=== PATIENT | male | born 1935 | race Caucasian/White ===

== ENCOUNTER 2018-04-13 11:03 | Inpatient (IN) ==
[2018-04-13] MEDS ORDERED: SODIUM CHLORIDE 0.9% 1,000 ML IV STA (11:48)
[2018-04-13 12:11] LABS: Basophils # 0.1 10*3/uL (0.0-0.2); Basophils % 0.4 % (0.0-0.8); Eosinophils # 0.1 10*3/uL (0.0-0.87); Eosinophils % 0.7 % (0.00-10.9); Hematocrit 49.5 VOL% (42.0-52.0); Hemoglobin 16.4 GM/DL (14.0-18.0); Immature Granulocytes % 0.5 %; Immature Granulocytes Absolute 0.06 #; Lymphocytes % 7.6 % (21.2-54.2); Mean Corpuscular HGB Conc 33.1 GM/DL (32-36); Mean Corpuscular Hemoglobin 31 PG (27-34); Mean Corpuscular Volume 93.4 FL (87-102); Mean Platelet Volume 11.3 FL (9.6-12.0); Monocytes # 0.4 10*3/uL (0.11-0.8); Monocytes % 3.3 % (1.7-12.7); Neutrophils # 11.4 10*3/uL (1.4-7.4); Neutrophils % 87.5 % (38.7-73.9); Red Cell Distribution Width 13.7 % (9.3-17.3); White Blood Count 13.1 T/CUMM (4-12)
[2018-04-13 12:14] LABS: Platelet Count 89 T/CUMM (130-400)
[2018-04-13] MEDS ORDERED: ONDANSETRON 4 MG/2 ML VIAL ONE (12:21)
[2018-04-13 12:29] LABS: Alanine Aminotransferase 40 U/L (16-61); Albumin 3.6 G/DL (3.4-5.0); Alkaline Phosphatase 95 U/L (45-117); Aspartate Amino Transferase 33 U/L (0-37); Blood Urea Nitrogen 36 MG/DL (7-18); Calcium 9.5 MG/DL (8.5-10.1); Glucose 233 MG/DL (74-106); Hypochromasia 1+; Ovalocytes Slight; Platelet Estimate Decreased; Potassium 5.2 MMOL/L (3.5-5.1); Sodium 136 MMOL/L (136-145); Total Protein 7.6 G/DL (6.4-8.3)
[2018-04-13 12:36] LABS: Apearance,Urine CLEAR (Clear); Bacteria,Urine Occasional /HPF (Few); Bilirubin,Urine Negative (Negative); Blood, Urine Small mg/dL (Negative); Glucose,Urine (UA) 50 mg/dL (Negative); Ketones,Urine Negative (Negative); Lactic Acid 3.3 MMOL/L (0.4-2.0); Mucus,Urine Occasional /LPF (Occasional); Nitrite,Urine Negative (Negative); Protein,Urine 100 MG/DL; RBC,Urine 2 /HPF (0-4); Urine Color Yellow (Yellow); Urine Specific Gravity 1.011 (1.001-1.035); Urine Urobilinogen < 2.0 EU/DL (0.2-1.0)
[2018-04-13] MEDS ORDERED: SODIUM CHLORIDE 0.9% 3,900 ML IV ONE (12:58)
[2018-04-13] MEDS ORDERED: LEVOFLOXACIN INJ 500 MG in PREMIX 1 EACH IV STA (13:04)
[2018-04-13] MEDS ORDERED: ONDANSETRON 4 MG/2 ML VIAL IV PRN (13:11)
[2018-04-13] MEDS ORDERED: ACETAMINOPHEN 325 MG TABLET PO PRN (13:11)
[2018-04-13] MEDS: SODIUM CHLORIDE 0.9% 1,000 ML IV SCH ×2 (14:55→23:50)
[2018-04-13 14:58] LABS: ABG Base Excess -0.9 MMOL/L (-2.5-2.5); ABG HCO3 23.6 MMOL/L (20-26); ABG Oxygen Saturation 93.9 % (95-100); ABG PH 7.379 (7.35-7.45); ABG PO2 70.4 MM HG (80-95); ABG TCO2 20.6 MMOL/L (23-27)
[2018-04-13 16:31] LABS: Lactic Acid 3.2 MMOL/L (0.4-2.0)
[2018-04-13] MEDS: CEFTAROLINE 400 MG in SODIUM CHLORIDE 0.9% 100 ML IV SCH (17:20)
[2018-04-13] MEDS ORDERED: FLUTICASONE 50 MCG NASAL SPRAY 16 GM BOTTLE BOTH NARES PRN (18:41)
[2018-04-13] MEDS ORDERED: DEXTROSE 50% 25 GM/50 ML VIAL IV PRN (18:49)
[2018-04-13] MEDS ORDERED: GLUCAGON 1 MG VIAL IM PRN (18:49)
[2018-04-13] MEDS: traMADol 50 MG TABLET PO SCH (20:28)
[2018-04-13] MEDS: CALCIUM (CARBONATE) 600 MG TABLET PO SCH (20:28)
[2018-04-13] MEDS: DOCUSATE SODIUM 100 MG CAPSULE PO SCH (20:28)
[2018-04-13] MEDS: CHOLECALCIFEROL 1,000 UNIT TABLET PO SCH (20:29)
[2018-04-13] MEDS: GABAPENTIN 400 MG CAPSULE PO SCH (20:29)
[2018-04-13] MEDS: INSULIN LISPRO 100 UNIT/ML SUBCUT SCH (20:29)
[2018-04-13] MEDS: CLOTRIMAZOLE/BETAMETHASONE CREAM 15 GM TUBE TOP SCH (20:29)
[2018-04-13] MEDS: SIMVASTATIN 20 MG TABLET PO SCH (20:29)
[2018-04-13] MEDS: ALLOPURINOL 100 MG TABLET PO SCH (20:30)
[2018-04-14 05:16] LABS: Basophils # 0.1 10*3/uL (0.0-0.2); Basophils % 0.2 % (0.0-0.8); Hematocrit 46.8 VOL% (42.0-52.0); Hemoglobin 15.2 GM/DL (14.0-18.0); Immature Granulocytes % 5.4 %; Immature Granulocytes Absolute 1.35 #; Lymphocytes # 0.8 10*3/uL (1.4-4.0); Mean Corpuscular HGB Conc 32.5 GM/DL (32-36); Mean Corpuscular Hemoglobin 31 PG (27-34); Mean Corpuscular Volume 94.5 FL (87-102); Mean Platelet Volume 11.9 FL (9.6-12.0); Monocytes # 1.4 10*3/uL (0.11-0.8); Monocytes % 5.7 % (1.7-12.7); Neutrophils # 21.5 10*3/uL (1.4-7.4); Neutrophils % 85.7 % (38.7-73.9); Platelet Count 87 T/CUMM (130-400); Red Blood Count 4.95 MC/CUMM (3.8-5.5); Red Cell Distribution Width 14.1 % (9.3-17.3); White Blood Count 25.1 T/CUMM (4-12)
[2018-04-14] MEDS: CEFTAROLINE 400 MG in SODIUM CHLORIDE 0.9% 100 ML IV SCH (05:27)
[2018-04-14] MEDS: SODIUM CHLORIDE 0.9% 1,000 ML IV SCH ×4 (05:30→20:17)
[2018-04-14 05:42] LABS: Band Neutrophils 8 % (0-10); Lymphocytes 4 % (20-55); Metamyelocytes 2 %; Segmented Neutrophils 79 % (50-85); Total Cells Counted 100
[2018-04-14 05:43] LABS: Microcytosis Slight; Platelet Estimate Decreased
[2018-04-14 05:49] LABS: Lactic Acid 3.5 MMOL/L (0.4-2.0)
[2018-04-14] MEDS: glyBURIDE 5 MG TABLET PO SCH ×2 (07:48→17:36)
[2018-04-14] MEDS: PIOGLITAZONE 15 MG TABLET PO SCH (07:48)
[2018-04-14] MEDS: INSULIN LISPRO 100 UNIT/ML SUBCUT SCH ×4 (07:48→21:39)
[2018-04-14] MEDS: traMADol 50 MG TABLET PO SCH ×3 (07:48→21:38)
[2018-04-14] MEDS: GABAPENTIN 400 MG CAPSULE PO SCH ×3 (07:49→21:38)
[2018-04-14] MEDS: CLOTRIMAZOLE/BETAMETHASONE CREAM 15 GM TUBE TOP SCH ×2 (08:42→21:43)
[2018-04-14] MEDS: FUROSEMIDE 20 MG TABLET PO SCH (08:42)
[2018-04-14] MEDS: LORATADINE 10 MG TABLET PO SCH (08:42)
[2018-04-14] MEDS: MULTIVITAMIN (CENTRUM) TABLET PO SCH (08:42)
[2018-04-14] MEDS: ASPIRIN EC 81 MG TABLET PO SCH (08:42)
[2018-04-14] MEDS: PANTOPRAZOLE 40 MG TABLET PO SCH (08:42)
[2018-04-14] MEDS: DOCUSATE SODIUM 100 MG CAPSULE PO SCH ×2 (08:42→21:38)
[2018-04-14 08:54] LABS: Albumin 2.9 G/DL (3.4-5.0); Bilirubin,Total 1.1 MG/DL (0.2-1.0); Calcium 8.1 MG/DL (8.5-10.1); Total Protein 6.4 G/DL (6.4-8.3)
[2018-04-14 08:55] LABS: Osmolality,Calculated 279.5 MOS/KG (273-304); Risk Ratio 1.53; Thyroid Stimulating Hormone 1.45 uIU/ml (0.358-3.74); Uric Acid 6.3 MG/DL (3.5-7.2); VLDL CHOLESTEROL 20.4 MG/DL
[2018-04-14 08:56] LABS: Potassium 6.5 MMOL/L (3.5-5.1)
[2018-04-14] MEDS ORDERED: SODIUM POLYSTYRENE SULFATE 15 GM/60 ML BOTTLE PO SCH (09:30)
[2018-04-14] MEDS: cefTRIAXone 2,000 MG in SYRINGE 1 EACH IV SCH (16:15)
[2018-04-14 17:03] LABS: Calcium 8.2 MG/DL (8.5-10.1); Potassium 4.7 MMOL/L (3.5-5.1)
[2018-04-14] MEDS: TAMSULOSIN 0.4 MG CAPSULE PO SCH (17:36)
[2018-04-14] MEDS ORDERED: LEVOFLOXACIN INJ 750 MG in PREMIX 1 EACH IV SCH (21:00)
[2018-04-14] MEDS: CHOLECALCIFEROL 1,000 UNIT TABLET PO SCH (21:37)
[2018-04-14] MEDS: ALLOPURINOL 100 MG TABLET PO SCH (21:38)
[2018-04-14] MEDS: SIMVASTATIN 20 MG TABLET PO SCH (21:38)
[2018-04-14] MEDS: CALCIUM (CARBONATE) 600 MG TABLET PO SCH (21:38)
[2018-04-14] MEDS: NORTRIPTYLINE HCL 100 MG PO SCH (21:43)
[2018-04-15 06:15] LABS: Basophils # 0.1 10*3/uL (0.0-0.2); Basophils % 0.4 % (0.0-0.8); Eosinophils # 0.3 10*3/uL (0.0-0.87); Eosinophils % 1.7 % (0.00-10.9); Hematocrit 44.8 VOL% (42.0-52.0); Hemoglobin 14.6 GM/DL (14.0-18.0); Immature Granulocytes Absolute 0.45 #; Lymphocytes % 6.7 % (21.2-54.2); Mean Corpuscular HGB Conc 32.6 GM/DL (32-36); Mean Corpuscular Hemoglobin 31 PG (27-34); Mean Corpuscular Volume 95.3 FL (87-102); Mean Platelet Volume 12.4 FL (9.6-12.0); Monocytes # 0.9 10*3/uL (0.11-0.8); Monocytes % 6.2 % (1.7-12.7); Neutrophils # 12.3 10*3/uL (1.4-7.4); Platelet Count 81 T/CUMM (130-400); Red Cell Distribution Width 14.3 % (9.3-17.3)
[2018-04-15 06:33] LABS: Calcium 8.1 MG/DL (8.5-10.1); Osmolality,Calculated 284.8 MOS/KG (273-304); Potassium 4.5 MMOL/L (3.5-5.1)
[2018-04-15 06:44] LABS: Hypochromasia 1+; Ovalocytes Slight; Platelet Estimate Decreased
[2018-04-15 06:45] LABS: Microcytosis Slight
[2018-04-15] MEDS: INSULIN LISPRO 100 UNIT/ML SUBCUT SCH ×4 (09:00→20:35)
[2018-04-15] MEDS: PIOGLITAZONE 15 MG TABLET PO SCH (09:03)
[2018-04-15] MEDS: glyBURIDE 5 MG TABLET PO SCH ×2 (09:03→17:29)
[2018-04-15] MEDS: GABAPENTIN 400 MG CAPSULE PO SCH ×3 (09:03→20:34)
[2018-04-15] MEDS: traMADol 50 MG TABLET PO SCH ×3 (09:03→20:34)
[2018-04-15] MEDS: PANTOPRAZOLE 40 MG TABLET PO SCH (09:04)
[2018-04-15] MEDS: ASPIRIN EC 81 MG TABLET PO SCH (09:04)
[2018-04-15] MEDS: LORATADINE 10 MG TABLET PO SCH (09:04)
[2018-04-15] MEDS: FUROSEMIDE 20 MG TABLET PO SCH (09:04)
[2018-04-15] MEDS: DOCUSATE SODIUM 100 MG CAPSULE PO SCH ×2 (09:04→20:35)
[2018-04-15] MEDS: MULTIVITAMIN (CENTRUM) TABLET PO SCH (09:04)
[2018-04-15] MEDS: SODIUM CHLORIDE 0.9% 1,000 ML IV SCH (09:58)
[2018-04-15] MEDS: cefTRIAXone 2,000 MG in SYRINGE 1 EACH IV SCH (15:56)
[2018-04-15] MEDS: TAMSULOSIN 0.4 MG CAPSULE PO SCH (17:29)
[2018-04-15] MEDS: CLOTRIMAZOLE/BETAMETHASONE CREAM 15 GM TUBE TOP SCH ×2 (17:44→22:06)
[2018-04-15] MEDS: CABERGOLINE 0.5 MG PO SCH (20:33)
[2018-04-15] MEDS: NORTRIPTYLINE HCL 100 MG PO SCH (20:33)
[2018-04-15] MEDS: CHOLECALCIFEROL 1,000 UNIT TABLET PO SCH (20:33)
[2018-04-15] MEDS: SIMVASTATIN 20 MG TABLET PO SCH (20:34)
[2018-04-15] MEDS: CALCIUM (CARBONATE) 600 MG TABLET PO SCH (20:35)
[2018-04-15] MEDS: ALLOPURINOL 100 MG TABLET PO SCH (20:35)
[2018-04-16] MEDS: SODIUM CHLORIDE 0.9% 1,000 ML IV SCH ×2 (00:51→01:08)
[2018-04-16 06:13] LABS: Basophils # 0.1 10*3/uL (0.0-0.2); Basophils % 0.6 % (0.0-0.8); Eosinophils # 0.3 10*3/uL (0.0-0.87); Eosinophils % 3.8 % (0.00-10.9); Hematocrit 42.3 VOL% (42.0-52.0); Immature Granulocytes % 0.9 %; Immature Granulocytes Absolute 0.08 #; Lymphocytes # 0.9 10*3/uL (1.4-4.0); Lymphocytes % 10.7 % (21.2-54.2); Mean Corpuscular HGB Conc 33.1 GM/DL (32-36); Mean Corpuscular Hemoglobin 31 PG (27-34); Mean Corpuscular Volume 94.4 FL (87-102); Mean Platelet Volume 11.9 FL (9.6-12.0); Monocytes # 0.7 10*3/uL (0.11-0.8); Monocytes % 7.7 % (1.7-12.7); Neutrophils # 6.4 10*3/uL (1.4-7.4); Neutrophils % 76.3 % (38.7-73.9); Platelet Count 87 T/CUMM (130-400); Red Blood Count 4.48 MC/CUMM (3.8-5.5); Red Cell Distribution Width 14.4 % (9.3-17.3); White Blood Count 8.4 T/CUMM (4-12)
[2018-04-16 06:35] LABS: Hypochromasia Slight; Microcytosis 1+; Platelet Estimate Decreased
[2018-04-16 06:37] LABS: Calcium 8.2 MG/DL (8.5-10.1); Osmolality,Calculated 288.5 MOS/KG (273-304); Potassium 4.7 MMOL/L (3.5-5.1)
[2018-04-16] MEDS: INSULIN LISPRO 100 UNIT/ML SUBCUT SCH ×4 (08:00→20:35)
[2018-04-16] MEDS: PIOGLITAZONE 15 MG TABLET PO SCH (09:17)
[2018-04-16] MEDS: glyBURIDE 5 MG TABLET PO SCH ×2 (09:17→17:04)
[2018-04-16] MEDS: traMADol 50 MG TABLET PO SCH ×3 (09:18→20:36)
[2018-04-16] MEDS: GABAPENTIN 400 MG CAPSULE PO SCH ×3 (09:18→20:37)
[2018-04-16] MEDS: FUROSEMIDE 20 MG TABLET PO SCH (09:18)
[2018-04-16] MEDS: MULTIVITAMIN (CENTRUM) TABLET PO SCH (09:18)
[2018-04-16] MEDS: ASPIRIN EC 81 MG TABLET PO SCH (09:18)
[2018-04-16] MEDS: LORATADINE 10 MG TABLET PO SCH (09:18)
[2018-04-16] MEDS: DOCUSATE SODIUM 100 MG CAPSULE PO SCH ×2 (09:18→20:36)
[2018-04-16] MEDS: PANTOPRAZOLE 40 MG TABLET PO SCH (09:22)
[2018-04-16] MEDS: CLOTRIMAZOLE/BETAMETHASONE CREAM 15 GM TUBE TOP SCH ×2 (11:11→20:35)
[2018-04-16] MEDS: MAGNESIUM SULF IV SCH (15:09)
[2018-04-16] MEDS: SODIUM CHLORIDE 0.9% IV SCH (15:09)
[2018-04-16] MEDS: cefTRIAXone 2,000 MG in SYRINGE 1 EACH IV SCH (16:20)
[2018-04-16] MEDS: TAMSULOSIN 0.4 MG CAPSULE PO SCH (17:04)
[2018-04-16] MEDS: SIMVASTATIN 20 MG TABLET PO SCH (20:36)
[2018-04-16] MEDS: CHOLECALCIFEROL 1,000 UNIT TABLET PO SCH (20:36)
[2018-04-16] MEDS: CALCIUM (CARBONATE) 600 MG TABLET PO SCH (20:36)
[2018-04-16] MEDS: ALLOPURINOL 100 MG TABLET PO SCH (20:36)
[2018-04-16] MEDS: NORTRIPTYLINE HCL 100 MG PO SCH (20:37)
[2018-04-17] MEDS: SODIUM CHLORIDE 0.9% IV SCH ×2 (04:43→20:16)
[2018-04-17] MEDS: MAGNESIUM SULF IV SCH ×2 (04:43→20:16)
[2018-04-17 05:31] LABS: Basophils # 0.1 10*3/uL (0.0-0.2); Basophils % 1.1 % (0.0-0.8); Eosinophils # 0.3 10*3/uL (0.0-0.87); Eosinophils % 4.5 % (0.00-10.9); Hematocrit 44.7 VOL% (42.0-52.0); Hemoglobin 14.8 GM/DL (14.0-18.0); Immature Granulocytes % 1.1 %; Immature Granulocytes Absolute 0.07 #; Lymphocytes # 1.1 10*3/uL (1.4-4.0); Lymphocytes % 17.6 % (21.2-54.2); Mean Corpuscular HGB Conc 33.1 GM/DL (32-36); Mean Corpuscular Hemoglobin 31 PG (27-34); Mean Corpuscular Volume 94.3 FL (87-102); Mean Platelet Volume 11.5 FL (9.6-12.0); Monocytes # 0.5 10*3/uL (0.11-0.8); Monocytes % 8.6 % (1.7-12.7); Neutrophils # 4.1 10*3/uL (1.4-7.4); Neutrophils % 67.1 % (38.7-73.9); Platelet Count 105 T/CUMM (130-400); Red Blood Count 4.74 MC/CUMM (3.8-5.5); Red Cell Distribution Width 14.2 % (9.3-17.3); White Blood Count 6.2 T/CUMM (4-12)
[2018-04-17 05:57] LABS: Calcium 8.5 MG/DL (8.5-10.1); Osmolality,Calculated 283.7 MOS/KG (273-304); Potassium 4.8 MMOL/L (3.5-5.1)
[2018-04-17] MEDS: PIOGLITAZONE 15 MG TABLET PO SCH (07:55)
[2018-04-17] MEDS: glyBURIDE 5 MG TABLET PO SCH ×2 (07:55→17:21)
[2018-04-17] MEDS: INSULIN LISPRO 100 UNIT/ML SUBCUT SCH ×4 (07:55→20:18)
[2018-04-17] MEDS: GABAPENTIN 400 MG CAPSULE PO SCH ×3 (09:20→20:17)
[2018-04-17] MEDS: traMADol 50 MG TABLET PO SCH ×3 (09:20→20:17)
[2018-04-17] MEDS: LORATADINE 10 MG TABLET PO SCH (09:21)
[2018-04-17] MEDS: PANTOPRAZOLE 40 MG TABLET PO SCH (09:21)
[2018-04-17] MEDS: MULTIVITAMIN (CENTRUM) TABLET PO SCH (09:21)
[2018-04-17] MEDS: FUROSEMIDE 20 MG TABLET PO SCH (09:21)
[2018-04-17] MEDS: ASPIRIN EC 81 MG TABLET PO SCH (09:21)
[2018-04-17] MEDS: DOCUSATE SODIUM 100 MG CAPSULE PO SCH ×2 (09:21→20:18)
[2018-04-17] MEDS: CLOTRIMAZOLE/BETAMETHASONE CREAM 15 GM TUBE TOP SCH ×2 (09:29→20:19)
[2018-04-17] MEDS: cefTRIAXone 2,000 MG in SYRINGE 1 EACH IV SCH (15:41)
[2018-04-17] MEDS: TAMSULOSIN 0.4 MG CAPSULE PO SCH (17:21)
[2018-04-17] MEDS: NORTRIPTYLINE HCL 100 MG PO SCH (20:16)
[2018-04-17] MEDS: ALLOPURINOL 100 MG TABLET PO SCH (20:17)
[2018-04-17] MEDS: CALCIUM (CARBONATE) 600 MG TABLET PO SCH (20:18)
[2018-04-17] MEDS: SIMVASTATIN 20 MG TABLET PO SCH (20:18)
[2018-04-17] MEDS: CHOLECALCIFEROL 1,000 UNIT TABLET PO SCH (20:18)
[2018-04-18 03:39] LABS: Basophils # 0.1 10*3/uL (0.0-0.2); Basophils % 0.8 % (0.0-0.8); Eosinophils # 0.2 10*3/uL (0.0-0.87); Eosinophils % 3.6 % (0.00-10.9); Hematocrit 44.1 VOL% (42.0-52.0); Hemoglobin 14.6 GM/DL (14.0-18.0); Immature Granulocytes % 2.6 %; Immature Granulocytes Absolute 0.17 #; Lymphocytes # 1.2 10*3/uL (1.4-4.0); Lymphocytes % 18.2 % (21.2-54.2); Mean Corpuscular HGB Conc 33.1 GM/DL (32-36); Mean Corpuscular Hemoglobin 31 PG (27-34); Mean Platelet Volume 11.3 FL (9.6-12.0); Monocytes # 0.6 10*3/uL (0.11-0.8); Monocytes % 9.2 % (1.7-12.7); NRBC # 0.02 10*3/uL; Neutrophils # 4.2 10*3/uL (1.4-7.4); Neutrophils % 65.6 % (38.7-73.9); Platelet Count 105 T/CUMM (130-400); Red Blood Count 4.74 MC/CUMM (3.8-5.5); Red Cell Distribution Width 13.9 % (9.3-17.3); White Blood Count 6.4 T/CUMM (4-12)
[2018-04-18 04:13] LABS: Calcium 8.2 MG/DL (8.5-10.1); Osmolality,Calculated 288.5 MOS/KG (273-304); Potassium 4.6 MMOL/L (3.5-5.1)
[2018-04-18] MEDS: INSULIN LISPRO 100 UNIT/ML SUBCUT SCH ×4 (07:10→21:18)
[2018-04-18] MEDS: glyBURIDE 5 MG TABLET PO SCH ×2 (08:41→17:29)
[2018-04-18] MEDS: MULTIVITAMIN (CENTRUM) TABLET PO SCH (08:42)
[2018-04-18] MEDS: PIOGLITAZONE 15 MG TABLET PO SCH (08:42)
[2018-04-18] MEDS: GABAPENTIN 400 MG CAPSULE PO SCH ×3 (08:42→21:17)
[2018-04-18] MEDS: traMADol 50 MG TABLET PO SCH ×3 (08:43→21:16)
[2018-04-18] MEDS: PANTOPRAZOLE 40 MG TABLET PO SCH (08:44)
[2018-04-18] MEDS: FUROSEMIDE 20 MG TABLET PO SCH (08:44)
[2018-04-18] MEDS: LORATADINE 10 MG TABLET PO SCH (08:44)
[2018-04-18] MEDS: ASPIRIN EC 81 MG TABLET PO SCH (08:45)
[2018-04-18] MEDS: CLOTRIMAZOLE/BETAMETHASONE CREAM 15 GM TUBE TOP SCH ×2 (08:46→21:24)
[2018-04-18] MEDS: DOCUSATE SODIUM 100 MG CAPSULE PO SCH ×2 (08:50→21:25)
[2018-04-18] MEDS: SODIUM CHLORIDE 0.9% IV SCH ×2 (09:27→23:11)
[2018-04-18] MEDS: MAGNESIUM SULF IV SCH ×2 (09:27→23:11)
[2018-04-18] MEDS: CLINDAMYCIN INJ 600 MG in PREMIX 1 EACH IV SCH ×2 (12:08→21:18)
[2018-04-18] MEDS: cefTRIAXone 2,000 MG in SYRINGE 1 EACH IV SCH (15:45)
[2018-04-18 16:26] LABS: 25-Hydroxy D Total 34 ng/mL; 25-Hydroxy D2 < 4.0 ng/mL; 25-Hydroxy D3 34 ng/mL
[2018-04-18] MEDS: TAMSULOSIN 0.4 MG CAPSULE PO SCH (17:29)
[2018-04-18] MEDS ORDERED: LACTULOSE 20 GM/30 ML UDCUP PO PRN (19:32)
[2018-04-18] MEDS ORDERED: LACTULOSE 20 GM/30 ML UDCUP PO ONE (21:00)
[2018-04-18] MEDS: CALCIUM (CARBONATE) 600 MG TABLET PO SCH (21:18)
[2018-04-18] MEDS: CHOLECALCIFEROL 1,000 UNIT TABLET PO SCH (21:18)
[2018-04-18] MEDS: SIMVASTATIN 20 MG TABLET PO SCH (21:18)
[2018-04-18] MEDS: ALLOPURINOL 100 MG TABLET PO SCH (21:18)
[2018-04-18] MEDS: NORTRIPTYLINE HCL 100 MG PO SCH (21:20)
[2018-04-18] MEDS: CABERGOLINE 0.5 MG PO SCH (21:20)
[2018-04-19] MEDS: CLINDAMYCIN INJ 600 MG in PREMIX 1 EACH IV SCH (04:50)
[2018-04-19 06:12] LABS: Basophils # 0.1 10*3/uL (0.0-0.2); Basophils % 1.1 % (0.0-0.8); Eosinophils # 0.3 10*3/uL (0.0-0.87); Eosinophils % 5.1 % (0.00-10.9); Hematocrit 45.9 VOL% (42.0-52.0); Hemoglobin 15.5 GM/DL (14.0-18.0); Immature Granulocytes % 5.1 %; Immature Granulocytes Absolute 0.32 #; Lymphocytes # 1.7 10*3/uL (1.4-4.0); Lymphocytes % 27.4 % (21.2-54.2); Mean Corpuscular HGB Conc 33.8 GM/DL (32-36); Mean Corpuscular Hemoglobin 31 PG (27-34); Mean Corpuscular Volume 92.7 FL (87-102); Mean Platelet Volume 11.3 FL (9.6-12.0); Monocytes # 0.6 10*3/uL (0.11-0.8); Monocytes % 10.3 % (1.7-12.7); Neutrophils # 3.2 10*3/uL (1.4-7.4); Platelet Count 128 T/CUMM (130-400); Red Blood Count 4.95 MC/CUMM (3.8-5.5); Red Cell Distribution Width 14.2 % (9.3-17.3); White Blood Count 6.2 T/CUMM (4-12)
[2018-04-19 06:26] LABS: Calcium 8.3 MG/DL (8.5-10.1); Osmolality,Calculated 285.5 MOS/KG (273-304); Potassium 4.4 MMOL/L (3.5-5.1)
[2018-04-19 06:35] LABS: Anisocytosis 1+; Band Neutrophils 10 % (0-10); Eosinophils 5 % (0-10); Lymphocytes 23 % (20-55); Platelet Estimate Adequate; Segmented Neutrophils 53 % (50-85); Total Cells Counted 100
[2018-04-19 07:21] LABS: Sedimentation Rate-Westergren 43 MM/HR (0-20)
[2018-04-19] MEDS: INSULIN LISPRO 100 UNIT/ML SUBCUT SCH ×2 (09:04→11:30)
[2018-04-19] MEDS: PIOGLITAZONE 15 MG TABLET PO SCH (09:07)
[2018-04-19] MEDS: MULTIVITAMIN (CENTRUM) TABLET PO SCH (09:07)
[2018-04-19] MEDS: LORATADINE 10 MG TABLET PO SCH (09:07)
[2018-04-19] MEDS: PANTOPRAZOLE 40 MG TABLET PO SCH (09:07)
[2018-04-19] MEDS: ASPIRIN EC 81 MG TABLET PO SCH (09:07)
[2018-04-19] MEDS: traMADol 50 MG TABLET PO SCH ×2 (09:08→15:04)
[2018-04-19] MEDS: glyBURIDE 5 MG TABLET PO SCH (09:09)
[2018-04-19] MEDS: FUROSEMIDE 20 MG TABLET PO SCH (09:09)
[2018-04-19] MEDS: GABAPENTIN 400 MG CAPSULE PO SCH ×2 (09:09→15:04)
[2018-04-19] MEDS: DOCUSATE SODIUM 100 MG CAPSULE PO SCH (09:09)
[2018-04-19] MEDS: CLOTRIMAZOLE/BETAMETHASONE CREAM 15 GM TUBE TOP SCH (09:10)
[2018-04-19] MEDS ORDERED: CLINDAMYCIN 300 MG CAPSULE PO SCH (12:00)
[2018-04-19 12:06] VITALS: BP 151/91
[2018-04-19] MEDS: cefTRIAXone 2,000 MG in SYRINGE 1 EACH IV SCH (15:04)
[2018-04-19] MEDS: SODIUM CHLORIDE 0.9% IV SCH (15:05)
[2018-04-19] MEDS: MAGNESIUM SULF IV SCH (15:05)
[2018-04-22] MEDS ORDERED: NON-FORMULARY MEDICATION (Testosterone Enanthate [Testosterone Enanthate] 200 MG) IM SCH (09:00)
== END 2018-04-19 15:35 | disposition home or self-care (01) | DRG 872 ==
LOC: N.ED 11:03 → N.EDINP 13:09 → N.ICU 14:30 → N.3E 04-14 19:16
PROVIDERS: ADMIT Family Medicine; ATTEND Family Medicine

== ENCOUNTER 2021-12-21 17:29 | Inpatient (IN) ==
[2021-12-21] MEDS ORDERED: LEVOFLOXACIN INJ 500 MG/100 ML PREMIX IV STA (18:14)
[2021-12-21] MEDS ORDERED: ALBUTEROL/IPRATROPIUM 3 ML NEB RESP TX STA (18:14)
[2021-12-21] MEDS ORDERED: ACETAMINOPHEN 500 MG TABLET PO STA (18:14)
[2021-12-21 18:25] LABS: Basophils % 0.3 % (0.0-0.8); Eosinophils % 0.6 % (0.00-10.9); Hematocrit 45.4 VOL% (42.0-52.0); Hemoglobin 15.4 GM/DL (14.0-18.0); Immature Granulocytes % 0.9 %; Immature Granulocytes Absolute 0.03 #; Lymphocytes # 0.5 10*3/uL (1.4-4.0); Lymphocytes % 15.2 % (21.2-54.2); Mean Corpuscular HGB Conc 33.9 GM/DL (32-36); Mean Corpuscular Volume 92.3 FL (87-102); Monocytes % 10.1 % (1.7-12.7); Neutrophils % 72.9 % (38.7-73.9); Red Blood Count 4.92 MC/CUMM (3.8-5.5); Red Cell Distribution Width 13.7 % (9.3-17.3); White Blood Count 3.4 T/CUMM (4-12)
[2021-12-21 18:26] LABS: Platelet Count 83 T/CUMM (130-400)
[2021-12-21 18:33] LABS: Mucus,Urine Occasional /LPF (Occasional); RBC,Urine 99 /HPF (0-4); Squamous Epithelial Cell,Urine Occasional /HPF (0-10)
[2021-12-21 18:34] LABS: Bilirubin,Urine Negative (Negative); Blood, Urine Large mg/dL (Negative); Glucose,Urine (UA) Negative (Negative); Ketones,Urine Negative (Negative); Nitrite,Urine Negative (Negative); Protein,Urine >=300 mg/dL (Negative); Urine Appearance Clear (Clear); Urine Color Yellow (Yellow)
[2021-12-21 18:39] LABS: PT Patient Result 11.1 SECS (10.5-12.0)
[2021-12-21 18:42] LABS: Platelet Estimate Decreased
[2021-12-21 18:44] LABS: Albumin 2.9 G/DL (3.4-5.0); Bilirubin,Total 1.1 MG/DL (0.20-1.00); Calcium 7.5 MG/DL (8.5-10.1); Osmolality,Calculated 277.5 MOS/KG (273-304); Potassium 5.1 MMOL/L (3.5-5.1); Total Protein 6.4 G/DL (6.4-8.2)
[2021-12-21] MEDS ORDERED: IBUPROFEN 800 MG TABLET ONE (19:59)
[2021-12-21] MEDS ORDERED: IBUPROFEN 800 MG TABLET PO STA (20:04)
[2021-12-21] MEDS ORDERED: ACETAMINOPHEN 325 MG TABLET PO PRN (20:37)
[2021-12-21] MEDS ORDERED: MORPHINE 2 MG/1 ML SYRINGE IV PRN (20:37)
[2021-12-21] MEDS ORDERED: ONDANSETRON 4 MG/2 ML VIAL IV PRN (20:37)
[2021-12-21] MEDS ORDERED: IBUPROFEN 600 MG TABLET PO PRN (20:37)
[2021-12-21] MEDS ORDERED: FLUTICASONE 50 MCG NASAL SPRAY 16 GM BOTTLE BOTH NARES PRN (20:37)
[2021-12-21] MEDS: SODIUM CHLORIDE 0.9% 1,000 ML IV SCH (21:15)
[2021-12-21] MEDS: GABAPENTIN 400 MG CAPSULE PO SCH (21:21)
[2021-12-21] MEDS: PANTOPRAZOLE 40 MG TABLET PO SCH (21:22)
[2021-12-21] MEDS: ENOXAPARIN 30 MG/0.3 ML SYRINGE SUBCUT SCH (21:22)
[2021-12-21] MEDS: DOCUSATE SODIUM 100 MG CAPSULE PO SCH (21:22)
[2021-12-21] MEDS: DOXYCYCLINE HYCLATE INJ 100 MG in SODIUM CHLORIDE 0.9% 100 ML IV SCH (21:22)
[2021-12-21] MEDS: SIMVASTATIN 20 MG TABLET PO SCH (21:22)
[2021-12-21] MEDS: allopurinoL 100 MG TABLET PO SCH (21:23)
[2021-12-21] MEDS ORDERED: SODIUM CHLORIDE 0.9% 1,000 ML IV STA (22:29)
[2021-12-22] MEDS: INSULIN REGULAR 100 UNIT/ML SUBCUT SCH ×4 (00:47→19:33)
[2021-12-22 04:19] LABS: Basophils % 0.3 % (0.0-0.8); Hematocrit 42.8 VOL% (42.0-52.0); Hemoglobin 14.1 GM/DL (14.0-18.0); Immature Granulocytes % 2.4 %; Immature Granulocytes Absolute 0.18 #; Lymphocytes # 0.8 10*3/uL (1.4-4.0); Mean Corpuscular HGB Conc 32.9 GM/DL (32-36); Mean Corpuscular Volume 94.1 FL (87-102); Mean Platelet Volume 11.4 FL (9.6-12.0); Monocytes % 7.4 % (1.7-12.7); Neutrophils % 79.9 % (38.7-73.9); Red Blood Count 4.55 MC/CUMM (3.8-5.5)
[2021-12-22 04:21] LABS: Platelet Count 76 T/CUMM (130-400); White Blood Count 7.5 T/CUMM (4-12)
[2021-12-22 04:36] LABS: Amorphous Crystals,Urine Occasional /HPF (Few); Mucus,Urine Occasional /LPF (Occasional); RBC,Urine 100 /HPF (0-4)
[2021-12-22 04:37] LABS: Bilirubin,Urine Negative (Negative); Blood, Urine Large mg/dL (Negative); Glucose,Urine (UA) Negative (Negative); Ketones,Urine Negative (Negative); Nitrite,Urine Negative (Negative); Protein,Urine >=300 mg/dL (Negative); Urine Appearance Clear (Clear); Urine Color Yellow (Yellow); Urine Urobilinogen 0.2 eU/dL (<2.0)
[2021-12-22 04:40] LABS: Band Neutrophils 8 % (0-10); Eosinophils 1 % (0-10); Lymphocytes 8 % (20-55); Nucleated Red Blood Cells 1 (0-5); Platelet Estimate Decreased; Segmented Neutrophils 71 % (50-85); Total Cells Counted 100
[2021-12-22 04:50] LABS: Albumin 2.2 G/DL (3.4-5.0); Calcium 7.1 MG/DL (8.5-10.1); Potassium 4.4 MMOL/L (3.5-5.1); Risk Ratio 2.25; Total Protein 5.7 G/DL (6.4-8.2); VLDL Cholesterol 18.8 MG/DL
[2021-12-22] MEDS: FUROSEMIDE 20 MG TABLET PO SCH (08:30)
[2021-12-22] MEDS: DOCUSATE SODIUM 100 MG CAPSULE PO SCH ×2 (08:30→22:48)
[2021-12-22] MEDS: traMADol 50 MG TABLET PO SCH ×3 (08:30→22:48)
[2021-12-22] MEDS: TAMSULOSIN 0.4 MG CAPSULE PO SCH (08:30)
[2021-12-22] MEDS: ASPIRIN EC 81 MG TABLET PO SCH (08:30)
[2021-12-22] MEDS ORDERED: PANTOPRAZOLE 40 MG TABLET PO SCH (09:00)
[2021-12-22] MEDS: DOXYCYCLINE HYCLATE INJ 100 MG in SODIUM CHLORIDE 0.9% 100 ML IV SCH (09:00)
[2021-12-22] MEDS: PIOGLITAZONE 15 MG TABLET PO SCH (09:05)
[2021-12-22] MEDS: glyBURIDE 5 MG TABLET PO SCH ×2 (09:05→16:06)
[2021-12-22] MEDS: SODIUM CHLORIDE 0.9% 1,000 ML IV SCH (10:00)
[2021-12-22] MEDS: CLOTRIMAZOLE/BETAMETHASONE CREAM 15 GM TUBE TOP SCH ×2 (19:11→22:51)
[2021-12-22] MEDS ORDERED: TESTOSTERONE ENANTHATE IM SCH (20:37)
[2021-12-22] MEDS: NORTRIPTYLINE 25 MG CAPSULE PO SCH (22:46)
[2021-12-22] MEDS: CHOLECALCIFEROL 1,000 UNIT TABLET PO SCH (22:47)
[2021-12-22] MEDS: allopurinoL 100 MG TABLET PO SCH (22:47)
[2021-12-22] MEDS: GABAPENTIN 400 MG CAPSULE PO SCH (22:47)
[2021-12-22] MEDS: CALCIUM (CARBONATE) 500 MG TABLET PO SCH (22:47)
[2021-12-22] MEDS: PANTOPRAZOLE 40 MG TABLET PO SCH (22:48)
[2021-12-22] MEDS: SIMVASTATIN 20 MG TABLET PO SCH (22:48)
[2021-12-22] MEDS: ENOXAPARIN 30 MG/0.3 ML SYRINGE SUBCUT SCH (22:49)
[2021-12-23] MEDS: SODIUM CHLORIDE 0.9% 1,000 ML IV SCH (01:58)
[2021-12-23] MEDS: INSULIN REGULAR 100 UNIT/ML SUBCUT SCH ×5 (02:00→23:22)
[2021-12-23] MEDS: GLUCAGON 1 MG VIAL IM PRN ×2 (03:54→15:15)
[2021-12-23] MEDS: DOXYCYCLINE HYCLATE INJ 100 MG in SODIUM CHLORIDE 0.9% 100 ML IV SCH ×3 (03:55→21:16)
[2021-12-23] MEDS: DEXTROSE 10% 250 ML BAG IV PRN ×3 (04:14→22:19)
[2021-12-23 05:34] LABS: Basophils % 0.2 % (0.0-0.8); Eosinophils % 0.1 % (0.00-10.9); Hematocrit 38.8 VOL% (42.0-52.0); Hemoglobin 12.8 GM/DL (14.0-18.0); Immature Granulocytes % 16.8 %; Immature Granulocytes Absolute 1.64 #; Lymphocytes # 0.5 10*3/uL (1.4-4.0); Lymphocytes % 5.3 % (21.2-54.2); Mean Corpuscular Volume 93.7 FL (87-102); Mean Platelet Volume 11.8 FL (9.6-12.0); Monocytes % 3.8 % (1.7-12.7); Neutrophils % 73.8 % (38.7-73.9); Platelet Count 94 T/CUMM (130-400); Red Blood Count 4.14 MC/CUMM (3.8-5.5); Red Cell Distribution Width 14.2 % (9.3-17.3); White Blood Count 9.7 T/CUMM (4-12)
[2021-12-23 05:56] LABS: Band Neutrophils 8 % (0-10); Bilirubin,Total 0.9 MG/DL (0.20-1.00); Calcium 7.3 MG/DL (8.5-10.1); Eosinophils 1 % (0-10); Lymphocytes 3 % (20-55); Osmolality,Calculated 280.2 MOS/KG (273-304); Platelet Estimate Decreased; Potassium 4.1 MMOL/L (3.5-5.1); Segmented Neutrophils 83 % (50-85); Thyroid Stimulating Hormone 0.31 uIU/ml (0.358-3.74); Total Cells Counted 100; Total Protein 5.4 G/DL (6.4-8.2)
[2021-12-23] MEDS ORDERED: BENZONATATE 100 MG CAPSULE PO PRN (07:52)
[2021-12-23] MEDS ORDERED: LEVOFLOXACIN INJ 500 MG/100 ML PREMIX IV SCH (08:00)
[2021-12-23] MEDS: glyBURIDE 5 MG TABLET PO SCH (09:27)
[2021-12-23] MEDS: PIOGLITAZONE 15 MG TABLET PO SCH (09:28)
[2021-12-23] MEDS: TAMSULOSIN 0.4 MG CAPSULE PO SCH (09:28)
[2021-12-23] MEDS: ASPIRIN EC 81 MG TABLET PO SCH (09:28)
[2021-12-23] MEDS: LORATADINE 10 MG TABLET PO SCH (09:28)
[2021-12-23] MEDS: DOCUSATE SODIUM 100 MG CAPSULE PO SCH ×2 (09:30→21:11)
[2021-12-23] MEDS: FUROSEMIDE 20 MG TABLET PO SCH (09:30)
[2021-12-23] MEDS: MULTIVITAMIN (CENTRUM) TABLET PO SCH (09:30)
[2021-12-23] MEDS: traMADol 50 MG TABLET PO SCH ×3 (09:30→21:10)
[2021-12-23] MEDS: DEXTROSE 5% NACL 0.45% 1,000 ML IV SCH (15:58)
[2021-12-23] MEDS ORDERED: LEVOFLOXACIN INJ 250 MG/50 ML PREMIX IV SCH (18:00)
[2021-12-23] MEDS: CLOTRIMAZOLE/BETAMETHASONE CREAM 15 GM TUBE TOP SCH ×2 (19:05→21:15)
[2021-12-23] MEDS: SIMVASTATIN 20 MG TABLET PO SCH (21:10)
[2021-12-23] MEDS: PANTOPRAZOLE 40 MG TABLET PO SCH (21:10)
[2021-12-23] MEDS: GABAPENTIN 400 MG CAPSULE PO SCH (21:10)
[2021-12-23] MEDS: allopurinoL 100 MG TABLET PO SCH (21:10)
[2021-12-23] MEDS: CHOLECALCIFEROL 1,000 UNIT TABLET PO SCH (21:10)
[2021-12-23] MEDS: CALCIUM (CARBONATE) 500 MG TABLET PO SCH (21:11)
[2021-12-23] MEDS: ENOXAPARIN 30 MG/0.3 ML SYRINGE SUBCUT SCH (21:11)
[2021-12-23] MEDS: NORTRIPTYLINE 25 MG CAPSULE PO SCH (21:16)
[2021-12-24 05:22] LABS: Basophils % 0.3 % (0.0-0.8); Eosinophils % 0.4 % (0.00-10.9); Hematocrit 40.2 VOL% (42.0-52.0); Hemoglobin 13.4 GM/DL (14.0-18.0); Immature Granulocytes Absolute 0.74 #; Lymphocytes # 0.8 10*3/uL (1.4-4.0); Lymphocytes % 10.5 % (21.2-54.2); Mean Corpuscular HGB Conc 33.3 GM/DL (32-36); Mean Corpuscular Volume 92.4 FL (87-102); Mean Platelet Volume 11.6 FL (9.6-12.0); Monocytes % 5.9 % (1.7-12.7); Neutrophils % 72.9 % (38.7-73.9); Platelet Count 116 T/CUMM (130-400); Red Blood Count 4.35 MC/CUMM (3.8-5.5); White Blood Count 7.4 T/CUMM (4-12)
[2021-12-24 05:34] LABS: Calcium 7.8 MG/DL (8.5-10.1); Osmolality,Calculated 281.1 MOS/KG (273-304); Potassium 4.1 MMOL/L (3.5-5.1)
[2021-12-24] MEDS: DEXTROSE 5% NACL 0.45% 1,000 ML IV SCH ×2 (05:41→17:12)
[2021-12-24] MEDS: INSULIN REGULAR 100 UNIT/ML SUBCUT SCH ×3 (05:42→17:36)
[2021-12-24 05:48] LABS: Band Neutrophils 1 % (0-10); Lymphocytes 12 % (20-55); Microcytosis 1+; Segmented Neutrophils 83 % (50-85); Total Cells Counted 100
[2021-12-24 05:49] LABS: Platelet Estimate Decreased
[2021-12-24] MEDS: traMADol 50 MG TABLET PO SCH ×3 (09:02→20:35)
[2021-12-24] MEDS: ASPIRIN EC 81 MG TABLET PO SCH (09:02)
[2021-12-24] MEDS: DOXYCYCLINE HYCLATE 100 MG CAPSULE PO SCH ×2 (09:03→20:35)
[2021-12-24] MEDS: TAMSULOSIN 0.4 MG CAPSULE PO SCH ×2 (09:03→20:34)
[2021-12-24] MEDS: MULTIVITAMIN (CENTRUM) TABLET PO SCH (09:03)
[2021-12-24] MEDS: DOCUSATE SODIUM 100 MG CAPSULE PO SCH ×2 (09:03→20:34)
[2021-12-24] MEDS: FUROSEMIDE 20 MG TABLET PO SCH (09:04)
[2021-12-24] MEDS: LORATADINE 10 MG TABLET PO SCH (09:04)
[2021-12-24] MEDS: CLOTRIMAZOLE/BETAMETHASONE CREAM 15 GM TUBE TOP SCH (15:22)
[2021-12-24] MEDS: MAGNESIUM HYDROXIDE SUSP 30 ML UDCUP PO PRN ×2 (16:12→20:53)
[2021-12-24] MEDS: PANTOPRAZOLE 40 MG TABLET PO SCH (20:34)
[2021-12-24] MEDS: GABAPENTIN 400 MG CAPSULE PO SCH (20:34)
[2021-12-24] MEDS: NORTRIPTYLINE 25 MG CAPSULE PO SCH (20:34)
[2021-12-24] MEDS: CHOLECALCIFEROL 1,000 UNIT TABLET PO SCH (20:34)
[2021-12-24] MEDS: allopurinoL 100 MG TABLET PO SCH (20:34)
[2021-12-24] MEDS: CALCIUM (CARBONATE) 500 MG TABLET PO SCH (20:34)
[2021-12-24] MEDS: ENOXAPARIN 30 MG/0.3 ML SYRINGE SUBCUT SCH (20:35)
[2021-12-24] MEDS: SIMVASTATIN 20 MG TABLET PO SCH (20:35)
[2021-12-25] MEDS: INSULIN REGULAR 100 UNIT/ML SUBCUT SCH ×4 (00:12→17:39)
[2021-12-25] MEDS: CLOTRIMAZOLE/BETAMETHASONE CREAM 15 GM TUBE TOP SCH ×3 (00:12→22:21)
[2021-12-25 05:51] LABS: Albumin 2.1 G/DL (3.4-5.0); Bilirubin,Total 3.2 MG/DL (0.20-1.00); Calcium 8.2 MG/DL (8.5-10.1); Osmolality,Calculated 279.1 MOS/KG (273-304); Potassium 4.2 MMOL/L (3.5-5.1); Total Protein 6.3 G/DL (6.4-8.2)
[2021-12-25] MEDS: SODIUM CHLORIDE 0.9% 1,000 ML IV SCH (07:28)
[2021-12-25] MEDS: TAMSULOSIN 0.4 MG CAPSULE PO SCH ×2 (08:39→20:03)
[2021-12-25] MEDS: FUROSEMIDE 20 MG TABLET PO SCH (08:40)
[2021-12-25] MEDS: traMADol 50 MG TABLET PO SCH ×3 (08:40→20:04)
[2021-12-25] MEDS: LORATADINE 10 MG TABLET PO SCH (08:40)
[2021-12-25] MEDS: DOCUSATE SODIUM 100 MG CAPSULE PO SCH ×2 (08:40→20:05)
[2021-12-25] MEDS: MULTIVITAMIN (CENTRUM) TABLET PO SCH (08:40)
[2021-12-25] MEDS: ASPIRIN EC 81 MG TABLET PO SCH (08:40)
[2021-12-25] MEDS: DEXTROSE 5% NACL 0.45% 1,000 ML IV SCH ×2 (08:46→22:18)
[2021-12-25] MEDS ORDERED: LEVOFLOXACIN 500 MG TABLET PO SCH (09:00)
[2021-12-25] MEDS ORDERED: BISACODYL 5 MG TABLET PO PRN (13:33)
[2021-12-25] MEDS ORDERED: BISACODYL 5 MG TABLET PO ONE (15:00)
[2021-12-25] MEDS: MAGNESIUM HYDROXIDE SUSP 30 ML UDCUP PO PRN (20:02)
[2021-12-25] MEDS: CHOLECALCIFEROL 1,000 UNIT TABLET PO SCH (20:03)
[2021-12-25] MEDS: PANTOPRAZOLE 40 MG TABLET PO SCH (20:03)
[2021-12-25] MEDS: GABAPENTIN 400 MG CAPSULE PO SCH (20:04)
[2021-12-25] MEDS: CALCIUM (CARBONATE) 500 MG TABLET PO SCH (20:05)
[2021-12-25] MEDS: NORTRIPTYLINE 25 MG CAPSULE PO SCH (20:05)
[2021-12-25] MEDS: SIMVASTATIN 20 MG TABLET PO SCH (20:05)
[2021-12-25] MEDS: allopurinoL 100 MG TABLET PO SCH (20:05)
[2021-12-25] MEDS: ENOXAPARIN 30 MG/0.3 ML SYRINGE SUBCUT SCH (20:06)
[2021-12-25 20:15] LABS: Hepatitis B Core IgM Quant 0.09 Index; Hepatitis B Surface Ag Quant 0.17 Index; Hepatitis B Surface Ag Result Non-Reactive (NonReactive); Hepatitis C Virus Ab Quant 0.04 Index; Hepatitis C Virus Ab Result Non-Reactive (NonReactive)
[2021-12-26] MEDS: INSULIN REGULAR 100 UNIT/ML SUBCUT SCH ×5 (00:21→23:55)
[2021-12-26 04:58] LABS: Basophils # 0.1 10*3/uL (0.0-0.2); Eosinophils # 0.1 10*3/uL (0.0-0.87); Eosinophils % 2.5 % (0.00-10.9); Hematocrit 40.5 VOL% (42.0-52.0); Hemoglobin 13.6 GM/DL (14.0-18.0); Immature Granulocytes % 6.8 %; Immature Granulocytes Absolute 0.35 #; Lymphocytes # 0.9 10*3/uL (1.4-4.0); Lymphocytes % 17.7 % (21.2-54.2); Mean Corpuscular HGB Conc 33.6 GM/DL (32-36); Mean Corpuscular Volume 91.8 FL (87-102); Mean Platelet Volume 10.8 FL (9.6-12.0); Monocytes % 8.3 % (1.7-12.7); Neutrophils % 63.7 % (38.7-73.9); Platelet Count 141 T/CUMM (130-400); Red Blood Count 4.41 MC/CUMM (3.8-5.5); Red Cell Distribution Width 14.3 % (9.3-17.3); White Blood Count 5.2 T/CUMM (4-12)
[2021-12-26 05:20] LABS: Albumin 2.1 G/DL (3.4-5.0); Bilirubin,Total 5.9 MG/DL (0.20-1.00); Calcium 8.6 MG/DL (8.5-10.1); Osmolality,Calculated 277.2 MOS/KG (273-304); Potassium 4.3 MMOL/L (3.5-5.1); Total Protein 6.2 G/DL (6.4-8.2)
[2021-12-26] MEDS ORDERED: MAGNESIUM CITRATE 300 ML BOTTLE PO ONE (08:17)
[2021-12-26] MEDS: DOCUSATE SODIUM 100 MG CAPSULE PO SCH ×2 (08:22→21:06)
[2021-12-26] MEDS: MULTIVITAMIN (CENTRUM) TABLET PO SCH (08:23)
[2021-12-26] MEDS: traMADol 50 MG TABLET PO SCH ×3 (08:23→21:06)
[2021-12-26] MEDS: LORATADINE 10 MG TABLET PO SCH (08:23)
[2021-12-26] MEDS: FUROSEMIDE 20 MG TABLET PO SCH (08:23)
[2021-12-26] MEDS: TAMSULOSIN 0.4 MG CAPSULE PO SCH ×2 (08:23→21:06)
[2021-12-26] MEDS: ASPIRIN EC 81 MG TABLET PO SCH (08:23)
[2021-12-26] MEDS ORDERED: DOXYCYCLINE HYCLATE 100 MG CAPSULE PO SCH (09:00)
[2021-12-26 10:12] LABS: Bilirubin,Direct 4.24 MG/DL (0.0-0.20); Bilirubin,Indirect 0.8 MG/DL (0.0-1.0)
[2021-12-26] MEDS: DOXYCYCLINE HYCLATE 100 MG CAPSULE PO SCH ×2 (11:11→21:06)
[2021-12-26] MEDS: CLOTRIMAZOLE/BETAMETHASONE CREAM 15 GM TUBE TOP SCH ×2 (12:03→21:33)
[2021-12-26] MEDS: DEXTROSE 5% NACL 0.45% 1,000 ML IV SCH (16:57)
[2021-12-26] MEDS ORDERED: DEXTROMETHORPHAN ER 6 MG/ML 90 ML/BOTTLE PO PRN (17:46)
[2021-12-26] MEDS ORDERED: TESTOSTERONE ENANTHATE IM ONE (21:00)
[2021-12-26] MEDS: NORTRIPTYLINE 25 MG CAPSULE PO SCH (21:05)
[2021-12-26] MEDS: allopurinoL 100 MG TABLET PO SCH (21:05)
[2021-12-26] MEDS: PANTOPRAZOLE 40 MG TABLET PO SCH (21:05)
[2021-12-26] MEDS: GABAPENTIN 400 MG CAPSULE PO SCH (21:06)
[2021-12-26] MEDS: CALCIUM (CARBONATE) 500 MG TABLET PO SCH (21:06)
[2021-12-26] MEDS: CHOLECALCIFEROL 1,000 UNIT TABLET PO SCH (21:06)
[2021-12-26] MEDS: ENOXAPARIN 30 MG/0.3 ML SYRINGE SUBCUT SCH (21:33)
[2021-12-26] MEDS ORDERED: ALUMINUM/MAGNES/SIMETH MAX STR 30 ML UDCUP PO PRN (22:47)
[2021-12-27 05:15] LABS: Basophils # 0.1 10*3/uL (0.0-0.2); Eosinophils # 0.2 10*3/uL (0.0-0.87); Eosinophils % 2.7 % (0.00-10.9); Hematocrit 40.6 VOL% (42.0-52.0); Hemoglobin 13.4 GM/DL (14.0-18.0); Immature Granulocytes % 10.6 %; Immature Granulocytes Absolute 0.64 #; Lymphocytes # 0.9 10*3/uL (1.4-4.0); Lymphocytes % 14.8 % (21.2-54.2); Mean Corpuscular Volume 92.1 FL (87-102); Mean Platelet Volume 10.8 FL (9.6-12.0); Monocytes % 8.8 % (1.7-12.7); Neutrophils % 62.1 % (38.7-73.9); Platelet Count 161 T/CUMM (130-400); Red Blood Count 4.41 MC/CUMM (3.8-5.5); Red Cell Distribution Width 14.2 % (9.3-17.3)
[2021-12-27 05:43] LABS: Albumin 2.1 G/DL (3.4-5.0); Bilirubin,Total 3.4 MG/DL (0.20-1.00); Calcium 8.7 MG/DL (8.5-10.1); Osmolality,Calculated 275.2 MOS/KG (273-304); Potassium 4.5 MMOL/L (3.5-5.1); Total Protein 6.2 G/DL (6.4-8.2)
[2021-12-27 05:51] LABS: Anisocytosis Slight; Band Neutrophils 6 % (0-10); Eosinophils 4 % (0-10); Lymphocytes 17 % (20-55); Metamyelocytes 4 %; Platelet Estimate Normal; Segmented Neutrophils 61 % (50-85); Smudge Cells Few; Total Cells Counted 100
[2021-12-27 05:52] LABS: Macrocytosis Slight
[2021-12-27] MEDS: INSULIN REGULAR 100 UNIT/ML SUBCUT SCH ×4 (06:13→23:49)
[2021-12-27] MEDS: FUROSEMIDE 20 MG TABLET PO SCH (08:24)
[2021-12-27] MEDS: DOXYCYCLINE HYCLATE 100 MG CAPSULE PO SCH ×2 (08:24→21:10)
[2021-12-27] MEDS: ASPIRIN EC 81 MG TABLET PO SCH (08:24)
[2021-12-27] MEDS: TAMSULOSIN 0.4 MG CAPSULE PO SCH ×2 (08:24→21:11)
[2021-12-27] MEDS: traMADol 50 MG TABLET PO SCH ×3 (08:25→21:11)
[2021-12-27] MEDS: MULTIVITAMIN (CENTRUM) TABLET PO SCH (08:25)
[2021-12-27] MEDS: LORATADINE 10 MG TABLET PO SCH (08:25)
[2021-12-27] MEDS: CLOTRIMAZOLE/BETAMETHASONE CREAM 15 GM TUBE TOP SCH ×2 (08:26→21:11)
[2021-12-27] MEDS: DOCUSATE SODIUM 100 MG CAPSULE PO SCH ×2 (08:26→21:11)
[2021-12-27] MEDS: PANTOPRAZOLE 40 MG TABLET PO SCH ×2 (11:08→21:11)
[2021-12-27] MEDS: DEXTROSE 5% NACL 0.45% 1,000 ML IV SCH (12:28)
[2021-12-27] MEDS: ENOXAPARIN 30 MG/0.3 ML SYRINGE SUBCUT SCH (21:09)
[2021-12-27] MEDS: NORTRIPTYLINE 25 MG CAPSULE PO SCH (21:09)
[2021-12-27] MEDS: GABAPENTIN 400 MG CAPSULE PO SCH (21:10)
[2021-12-27] MEDS: CALCIUM (CARBONATE) 500 MG TABLET PO SCH (21:10)
[2021-12-27] MEDS: allopurinoL 100 MG TABLET PO SCH (21:10)
[2021-12-27] MEDS: CHOLECALCIFEROL 1,000 UNIT TABLET PO SCH (21:11)
[2021-12-28 05:47] LABS: Basophils # 0.1 10*3/uL (0.0-0.2); Basophils % 0.9 % (0.0-0.8); Eosinophils # 0.2 10*3/uL (0.0-0.87); Eosinophils % 3.2 % (0.00-10.9); Hematocrit 42.7 VOL% (42.0-52.0); Hemoglobin 14.3 GM/DL (14.0-18.0); Immature Granulocytes % 12.8 %; Immature Granulocytes Absolute 0.73 #; Mean Corpuscular HGB Conc 33.5 GM/DL (32-36); Mean Corpuscular Volume 91.4 FL (87-102); Monocytes % 7.4 % (1.7-12.7); NRBC # 0.02 10*3/uL; Neutrophils % 58.7 % (38.7-73.9); Platelet Count 188 T/CUMM (130-400); Red Blood Count 4.67 MC/CUMM (3.8-5.5); Red Cell Distribution Width 14.4 % (9.3-17.3); White Blood Count 5.7 T/CUMM (4-12)
[2021-12-28] MEDS: INSULIN REGULAR 100 UNIT/ML SUBCUT SCH ×4 (06:03→23:40)
[2021-12-28 06:14] LABS: Albumin 2.2 G/DL (3.4-5.0); Albumin 2.3 G/DL (3.4-5.0); Bilirubin,Direct 1.1 MG/DL (0.0-0.20); Bilirubin,Indirect 0.7 MG/DL (0.0-1.0); Bilirubin,Total 1.8 MG/DL (0.20-1.00); Bilirubin,Total 3.6 MG/DL (0.20-1.00); Calcium 8.6 MG/DL (8.5-10.1); Potassium 4.6 MMOL/L (3.5-5.1); Total Protein 5.9 G/DL (6.4-8.2); Total Protein 6.5 G/DL (6.4-8.2)
[2021-12-28 06:18] LABS: Band Neutrophils 4 % (0-10); Eosinophils 3 % (0-10); Lymphocytes 14 % (20-55); Metamyelocytes 3 %; Myelocytes 2 %; Segmented Neutrophils 65 % (50-85); Total Cells Counted 100
[2021-12-28 06:19] LABS: Anisocytosis 1+; Macrocytosis 1+
[2021-12-28] MEDS: MULTIVITAMIN (CENTRUM) TABLET PO SCH (09:36)
[2021-12-28] MEDS: ASPIRIN EC 81 MG TABLET PO SCH (09:36)
[2021-12-28] MEDS: traMADol 50 MG TABLET PO SCH ×3 (09:37→22:27)
[2021-12-28] MEDS: FUROSEMIDE 20 MG TABLET PO SCH (09:37)
[2021-12-28] MEDS: LORATADINE 10 MG TABLET PO SCH (09:37)
[2021-12-28] MEDS: CLOTRIMAZOLE/BETAMETHASONE CREAM 15 GM TUBE TOP SCH ×2 (09:37→22:28)
[2021-12-28] MEDS: DOCUSATE SODIUM 100 MG CAPSULE PO SCH ×2 (09:37→22:34)
[2021-12-28] MEDS: DOXYCYCLINE HYCLATE 100 MG CAPSULE PO SCH ×2 (09:37→22:26)
[2021-12-28] MEDS: TAMSULOSIN 0.4 MG CAPSULE PO SCH ×2 (09:37→22:27)
[2021-12-28] MEDS: PANTOPRAZOLE 40 MG TABLET PO SCH ×2 (09:37→22:28)
[2021-12-28] MEDS: DEXTROSE 5% NACL 0.45% 1,000 ML IV SCH (09:38)
[2021-12-28] MEDS: NORTRIPTYLINE 25 MG CAPSULE PO SCH (22:26)
[2021-12-28] MEDS: GABAPENTIN 400 MG CAPSULE PO SCH (22:26)
[2021-12-28] MEDS: ENOXAPARIN 30 MG/0.3 ML SYRINGE SUBCUT SCH (22:27)
[2021-12-28] MEDS: CHOLECALCIFEROL 1,000 UNIT TABLET PO SCH (22:27)
[2021-12-28] MEDS: allopurinoL 100 MG TABLET PO SCH (22:27)
[2021-12-28] MEDS: CALCIUM (CARBONATE) 500 MG TABLET PO SCH (22:27)
[2021-12-29] MEDS: DEXTROSE 5% NACL 0.45% 1,000 ML IV SCH ×2 (01:42→17:48)
[2021-12-29] MEDS: INSULIN REGULAR 100 UNIT/ML SUBCUT SCH ×3 (06:02→17:30)
[2021-12-29 07:12] LABS: Albumin 2.4 G/DL (3.4-5.0); Bilirubin,Direct 0.72 MG/DL (0.0-0.20); Bilirubin,Indirect 0.6 MG/DL (0.0-1.0); Bilirubin,Total 1.3 MG/DL (0.20-1.00); Total Protein 6.6 G/DL (6.4-8.2)
[2021-12-29] MEDS: TAMSULOSIN 0.4 MG CAPSULE PO SCH (12:07)
[2021-12-29] MEDS: DOXYCYCLINE HYCLATE 100 MG CAPSULE PO SCH (12:07)
[2021-12-29] MEDS: ASPIRIN EC 81 MG TABLET PO SCH (12:08)
[2021-12-29] MEDS: FUROSEMIDE 20 MG TABLET PO SCH (12:08)
[2021-12-29] MEDS: traMADol 50 MG TABLET PO SCH ×2 (12:08→15:18)
[2021-12-29] MEDS: MULTIVITAMIN (CENTRUM) TABLET PO SCH (12:08)
[2021-12-29] MEDS: DOCUSATE SODIUM 100 MG CAPSULE PO SCH (12:08)
[2021-12-29] MEDS: LORATADINE 10 MG TABLET PO SCH (12:09)
[2021-12-29] MEDS: PANTOPRAZOLE 40 MG TABLET PO SCH (12:09)
[2021-12-29] MEDS: CLOTRIMAZOLE/BETAMETHASONE CREAM 15 GM TUBE TOP SCH (12:11)
[2021-12-29 14:19] LABS: Antinuclear Ab, S 0.4 U
[2021-12-29 16:24] VITALS: BP 148/84
== END 2021-12-29 19:10 | disposition home or self-care (01) | DRG 682 ==
LOC: N.ED 17:29 → N.EDINP 20:17 → N.5E 12-22 12:50
PROVIDERS: ADMIT Family Medicine; ATTEND Family Medicine

== ENCOUNTER 2022-10-25 13:21 | Inpatient (IN) ==
[2022-10-25 15:37] LABS: Basophils % 0.2 % (0.0-0.8); Eosinophils % 0.4 % (0.00-10.9); Hematocrit 48.7 VOL% (42.0-52.0); Hemoglobin 15.6 GM/DL (14.0-18.0); Immature Granulocytes % 0.4 %; Immature Granulocytes Absolute 0.02 #; Lymphocytes # 0.2 10*3/uL (1.4-4.0); Lymphocytes % 4.6 % (21.2-54.2); Mean Corpuscular Volume 93.3 FL (87-102); Monocytes # 0.2 10*3/uL (0.11-0.8); Monocytes % 3.7 % (1.7-12.7); Neutrophils % 90.7 % (38.7-73.9); Platelet Count 141 T/CUMM (130-400); Red Blood Count 5.22 MC/CUMM (3.8-5.5); Red Cell Distribution Width 14.3 % (9.3-17.3); White Blood Count 5.19 T/CUMM (4-12)
[2022-10-25] MEDS ORDERED: MEROPENEM 500 MG in SODIUM CHLORIDE 0.9% 100 ML IV ONE (15:54)
[2022-10-25 15:58] LABS: Mucus,Urine Occasional /LPF (Occasional); RBC,Urine 2 /HPF (0-4)
[2022-10-25 15:59] LABS: Bilirubin,Urine Negative (Negative); Blood, Urine Small mg/dL (Negative); Glucose,Urine (UA) Negative (Negative); Ketones,Urine Negative (Negative); Nitrite,Urine Negative (Negative); Protein,Urine >=300 mg/dL (Negative); Urine Appearance Clear (Clear); Urine Color Yellow (Yellow); Urine Urobilinogen 0.2 eU/dL (<2.0); Urine pH 5.5 (4.5-8.0)
[2022-10-25 16:12] LABS: Albumin 3.7 G/DL (3.4-5.0); Bilirubin,Total 2.5 MG/DL (0.20-1.00); Calcium 9.3 MG/DL (8.5-10.1); Potassium 5.3 MMOL/L (3.5-5.1); Thyroid Stimulating Hormone 0.733 uIU/ml (0.358-3.74); Total Protein 7.7 G/DL (6.4-8.2)
[2022-10-25 16:48] LABS: Band Neutrophils 1 % (0-10); Eosinophils 1 % (0-10); Lymphocytes 5 % (20-55); Total Cells Counted 100
[2022-10-25 16:49] LABS: Platelet Estimate Adequate
[2022-10-25] MEDS ORDERED: SODIUM CHLORIDE 0.9% 1,000 ML IV STA (17:06)
[2022-10-25] MEDS ORDERED: ONDANSETRON 4 MG/2 ML VIAL IV PRN ×2 (17:59→18:09)
[2022-10-25] MEDS ORDERED: SODIUM CHLORIDE 0.9% 1,000 ML IV SCH (18:00)
[2022-10-25] MEDS ORDERED: hydrALAZINE 20 MG/1 ML VIAL IV PRN (18:09)
[2022-10-25] MEDS ORDERED: ACETAMINOPHEN 325 MG TABLET PO PRN (18:09)
[2022-10-25] MEDS ORDERED: ALBUTEROL/IPRATROPIUM 3 ML NEB RESP TX PRN (18:09)
[2022-10-25] MEDS ORDERED: INSULIN REGULAR 10 UNIT, CALCIUM GLUCONATE 1,000 MG in DEXTROSE 10% 250 ML IV ONE (18:13)
[2022-10-25] MEDS: DEXTROSE 5% NACL 0.9% 1,000 ML IV SCH (20:32)
[2022-10-25] MEDS: ENOXAPARIN 30 MG/0.3 ML SYRINGE SUBCUT SCH (21:01)
[2022-10-25] MEDS ORDERED: MELATONIN 3 MG TABLET PO PRN (21:41)
[2022-10-26 03:49] LABS: Basophils % 0.1 % (0.0-0.8); Hematocrit 43.5 VOL% (42.0-52.0); Immature Granulocytes % 1.3 %; Immature Granulocytes Absolute 0.23 #; Lymphocytes # 0.5 10*3/uL (1.4-4.0); Lymphocytes % 2.8 % (21.2-54.2); Mean Corpuscular HGB Conc 32.2 GM/DL (32-36); Mean Corpuscular Volume 93.1 FL (87-102); Mean Platelet Volume 11.6 FL (9.6-12.0); Monocytes # 1.4 10*3/uL (0.11-0.8); Monocytes % 7.6 % (1.7-12.7); Neutrophils % 88.2 % (38.7-73.9); Platelet Count 120 T/CUMM (130-400); Red Blood Count 4.67 MC/CUMM (3.8-5.5); Red Cell Distribution Width 14.7 % (9.3-17.3); White Blood Count 18.37 T/CUMM (4-12)
[2022-10-26 04:07] LABS: Band Neutrophils 8 % (0-10); Lymphocytes 2 % (20-55); Platelet Estimate Normal; Total Cells Counted 100
[2022-10-26 04:25] LABS: Bilirubin,Direct 3.22 MG/DL (0.0-0.20); Bilirubin,Total 4.3 MG/DL (0.20-1.00)
[2022-10-26 04:27] LABS: Albumin 3.2 G/DL (3.4-5.0); Bilirubin,Total 4.4 MG/DL (0.20-1.00); Calcium 8.7 MG/DL (8.5-10.1); Osmolality,Calculated 296.5 MOS/KG (273-304); Potassium 5.5 MMOL/L (3.5-5.1); Total Protein 6.4 G/DL (6.4-8.2)
[2022-10-26 04:35] LABS: Risk Ratio 1.86; VLDL Cholesterol 15.6 MG/DL
[2022-10-26] MEDS ORDERED: SODIUM POLYSTYRENE SULFATE 15 GM/60 ML BOTTLE RECTAL PRN (07:44)
[2022-10-26] MEDS ORDERED: SODIUM POLYSTYRENE SULFATE 15 GM/60 ML BOTTLE PO ONE (07:44)
[2022-10-26] MEDS ORDERED: SODIUM CHLORIDE 0.9% 1,000 ML IV ONE (07:47)
[2022-10-26] MEDS ORDERED: INSULIN REGULAR 100 UNIT/ML IV ONE (07:49)
[2022-10-26] MEDS ORDERED: CALCIUM GLUCONATE RIDER 1,000 MG/50 ML PREMIX IV ONE (07:49)
[2022-10-26] MEDS ORDERED: MAGNESIUM SULF RIDER 2 GM/50 ML PREMIX IV ONE (07:49)
[2022-10-26] MEDS ORDERED: SODIUM BICARBONATE 50 MEQ/50 ML VIAL IV ONE (07:50)
[2022-10-26] MEDS ORDERED: INSULIN REGULAR 10 UNIT, CALCIUM GLUCONATE 1,000 MG in DEXTROSE 10% 250 ML IV ONE (08:25)
[2022-10-26] MEDS ORDERED: SODIUM BICARB INJ 50 MEQ in IV BAG 1 EACH IV ONE (09:00)
[2022-10-26] MEDS: PANTOPRAZOLE 40 MG TABLET PO SCH (09:20)
[2022-10-26] MEDS: MEROPENEM 500 MG in SODIUM CHLORIDE 0.9% 100 ML IV SCH ×2 (09:22→16:11)
[2022-10-26] MEDS: SODIUM POLYSTYRENE SULFATE 15 GM/60 ML BOTTLE PO SCH ×3 (09:32→20:56)
[2022-10-26] MEDS: LACTULOSE 20 GM/30 ML UDCUP PO SCH ×3 (09:55→17:29)
[2022-10-26] MEDS: DEXTROSE 5% NACL 0.9% 1,000 ML IV SCH (09:55)
[2022-10-26] MEDS ORDERED: FLUTICASONE 50 MCG NASAL SPRAY 16 GM BOTTLE BOTH NARES PRN (11:41)
[2022-10-26] MEDS ORDERED: CLOTRIMAZOLE/BETAMETHASONE CREAM 15 GM TUBE TOP PRN (11:41)
[2022-10-26] MEDS ORDERED: TESTOSTERONE ENANTHATE IM SCH (11:45)
[2022-10-26] MEDS: DOXYCYCLINE HYCLATE 100 MG CAPSULE PO SCH ×2 (12:31→20:56)
[2022-10-26] MEDS: TAMSULOSIN 0.4 MG CAPSULE PO SCH ×2 (12:31→20:56)
[2022-10-26] MEDS: SODIUM CHLORIDE 0.9% 1,000 ML IV SCH (13:12)
[2022-10-26] MEDS: traMADol 50 MG TABLET PO SCH ×2 (15:54→20:56)
[2022-10-26] MEDS: ESCITALOPRAM 10 MG TABLET PO SCH (20:56)
[2022-10-26] MEDS: NORTRIPTYLINE 25 MG CAPSULE PO SCH (20:56)
[2022-10-26] MEDS: allopurinoL 100 MG TABLET PO SCH (20:56)
[2022-10-26] MEDS: CALCIUM (CARBONATE) 500 MG TABLET PO SCH (20:56)
[2022-10-26] MEDS: ENOXAPARIN 30 MG/0.3 ML SYRINGE SUBCUT SCH (20:57)
[2022-10-27] MEDS: LACTULOSE 20 GM/30 ML UDCUP PO SCH ×3 (00:57→13:40)
[2022-10-27] MEDS: MEROPENEM 500 MG in SODIUM CHLORIDE 0.9% 100 ML IV SCH ×3 (01:01→17:13)
[2022-10-27 03:41] LABS: Basophils % 0.3 % (0.0-0.8); Eosinophils # 0.1 10*3/uL (0.0-0.87); Eosinophils % 0.4 % (0.00-10.9); Hematocrit 40.6 VOL% (42.0-52.0); Hemoglobin 13.2 GM/DL (14.0-18.0); Immature Granulocytes % 1.3 %; Immature Granulocytes Absolute 0.18 #; Lymphocytes # 0.7 10*3/uL (1.4-4.0); Lymphocytes % 4.6 % (21.2-54.2); Mean Corpuscular HGB Conc 32.5 GM/DL (32-36); Mean Corpuscular Volume 92.1 FL (87-102); Monocytes # 1.2 10*3/uL (0.11-0.8); Monocytes % 8.4 % (1.7-12.7); Platelet Count 116 T/CUMM (130-400); Red Blood Count 4.41 MC/CUMM (3.8-5.5); Red Cell Distribution Width 14.9 % (9.3-17.3); White Blood Count 14.28 T/CUMM (4-12)
[2022-10-27 03:53] LABS: Albumin 2.8 G/DL (3.4-5.0); Bilirubin,Total 4.9 MG/DL (0.20-1.00); Calcium 8.6 MG/DL (8.5-10.1); Osmolality,Calculated 299.4 MOS/KG (273-304); Potassium 3.9 MMOL/L (3.5-5.1); Total Protein 6.6 G/DL (6.4-8.2)
[2022-10-27 04:06] LABS: Band Neutrophils 9 % (0-10); Lymphocytes 4 % (20-55); Total Cells Counted 100
[2022-10-27 04:07] LABS: Platelet Estimate Normal
[2022-10-27] MEDS: SODIUM POLYSTYRENE SULFATE 15 GM/60 ML BOTTLE PO SCH (06:00)
[2022-10-27] MEDS: SODIUM CHLORIDE 0.9% 1,000 ML IV SCH ×2 (06:00→18:26)
[2022-10-27] MEDS: PANTOPRAZOLE 40 MG TABLET PO SCH (09:48)
[2022-10-27] MEDS: ASPIRIN EC 81 MG TABLET PO SCH (09:48)
[2022-10-27] MEDS: DOXYCYCLINE HYCLATE 100 MG CAPSULE PO SCH ×2 (09:48→20:39)
[2022-10-27] MEDS: traMADol 50 MG TABLET PO SCH ×3 (09:48→20:39)
[2022-10-27] MEDS: TAMSULOSIN 0.4 MG CAPSULE PO SCH ×2 (09:48→20:39)
[2022-10-27] MEDS: allopurinoL 100 MG TABLET PO SCH (20:39)
[2022-10-27] MEDS: CALCIUM (CARBONATE) 500 MG TABLET PO SCH (20:39)
[2022-10-27] MEDS: ESCITALOPRAM 10 MG TABLET PO SCH (20:39)
[2022-10-27] MEDS: NORTRIPTYLINE 25 MG CAPSULE PO SCH (20:39)
[2022-10-27] MEDS: ENOXAPARIN 30 MG/0.3 ML SYRINGE SUBCUT SCH (20:42)
[2022-10-28] MEDS: MEROPENEM 500 MG in SODIUM CHLORIDE 0.9% 100 ML IV SCH ×3 (00:56→16:42)
[2022-10-28 05:12] LABS: Basophils % 0.2 % (0.0-0.8); Eosinophils # 0.1 10*3/uL (0.0-0.87); Eosinophils % 1.2 % (0.00-10.9); Hematocrit 42.3 VOL% (42.0-52.0); Hemoglobin 13.5 GM/DL (14.0-18.0); Immature Granulocytes % 0.9 %; Immature Granulocytes Absolute 0.09 #; Lymphocytes # 0.6 10*3/uL (1.4-4.0); Lymphocytes % 6.1 % (21.2-54.2); Mean Corpuscular HGB Conc 31.9 GM/DL (32-36); Mean Corpuscular Volume 93.2 FL (87-102); Mean Platelet Volume 12.2 FL (9.6-12.0); Monocytes # 0.8 10*3/uL (0.11-0.8); Monocytes % 7.8 % (1.7-12.7); Neutrophils % 83.8 % (38.7-73.9); Platelet Count 113 T/CUMM (130-400); Red Blood Count 4.54 MC/CUMM (3.8-5.5); White Blood Count 9.85 T/CUMM (4-12)
[2022-10-28] MEDS: SODIUM CHLORIDE 0.9% 1,000 ML IV SCH (05:26)
[2022-10-28 05:38] LABS: Albumin 3.1 G/DL (3.4-5.0); Bilirubin,Total 2.2 MG/DL (0.20-1.00); Calcium 8.4 MG/DL (8.5-10.1); Osmolality,Calculated 300.3 MOS/KG (273-304); Potassium 3.7 MMOL/L (3.5-5.1); Total Protein 6.7 G/DL (6.4-8.2)
[2022-10-28] MEDS: traMADol 50 MG TABLET PO SCH ×3 (08:10→21:01)
[2022-10-28] MEDS: DOXYCYCLINE HYCLATE 100 MG CAPSULE PO SCH (08:10)
[2022-10-28] MEDS: PANTOPRAZOLE 40 MG TABLET PO SCH (08:10)
[2022-10-28] MEDS: ASPIRIN EC 81 MG TABLET PO SCH (08:10)
[2022-10-28] MEDS: LACTULOSE 20 GM/30 ML UDCUP PO SCH (08:11)
[2022-10-28] MEDS: TAMSULOSIN 0.4 MG CAPSULE PO SCH ×2 (08:11→21:01)
[2022-10-28] MEDS ORDERED: ALUMINUM/MAGNES/SIMETH MAX STR 30 ML UDCUP PO PRN (10:58)
[2022-10-28] MEDS: LOSARTAN 25 MG TABLET PO SCH (11:18)
[2022-10-28] MEDS: CALCIUM (CARBONATE) 500 MG TABLET PO SCH (21:01)
[2022-10-28] MEDS: ENOXAPARIN 30 MG/0.3 ML SYRINGE SUBCUT SCH (21:01)
[2022-10-28] MEDS: NORTRIPTYLINE 25 MG CAPSULE PO SCH (21:01)
[2022-10-28] MEDS: allopurinoL 100 MG TABLET PO SCH (21:01)
[2022-10-28] MEDS: ESCITALOPRAM 10 MG TABLET PO SCH (21:01)
[2022-10-29] MEDS: MEROPENEM 500 MG in SODIUM CHLORIDE 0.9% 100 ML IV SCH ×2 (00:05→09:15)
[2022-10-29 07:45] LABS: Basophils % 0.6 % (0.0-0.8); Eosinophils # 0.3 10*3/uL (0.0-0.87); Eosinophils % 3.6 % (0.00-10.9); Hematocrit 43.6 VOL% (42.0-52.0); Immature Granulocytes % 1.6 %; Immature Granulocytes Absolute 0.11 #; Lymphocytes # 0.8 10*3/uL (1.4-4.0); Mean Corpuscular HGB Conc 32.1 GM/DL (32-36); Mean Corpuscular Volume 92.6 FL (87-102); Mean Platelet Volume 12.7 FL (9.6-12.0); Monocytes # 0.7 10*3/uL (0.11-0.8); Monocytes % 10.4 % (1.7-12.7); Neutrophils % 71.8 % (38.7-73.9); Platelet Count 103 T/CUMM (130-400); Red Blood Count 4.71 MC/CUMM (3.8-5.5); Red Cell Distribution Width 15.3 % (9.3-17.3); White Blood Count 7.02 T/CUMM (4-12)
[2022-10-29 08:24] LABS: Albumin 2.9 G/DL (3.4-5.0); Bilirubin,Total 1.7 MG/DL (0.20-1.00); Osmolality,Calculated 298.1 MOS/KG (273-304); Potassium 4.3 MMOL/L (3.5-5.1); Total Protein 6.8 G/DL (6.4-8.2)
[2022-10-29] MEDS: traMADol 50 MG TABLET PO SCH (09:15)
[2022-10-29] MEDS: PANTOPRAZOLE 40 MG TABLET PO SCH (09:15)
[2022-10-29] MEDS: LACTULOSE 20 GM/30 ML UDCUP PO SCH (09:15)
[2022-10-29] MEDS: LOSARTAN 25 MG TABLET PO SCH (09:15)
[2022-10-29] MEDS: ASPIRIN EC 81 MG TABLET PO SCH (09:15)
[2022-10-29] MEDS: TAMSULOSIN 0.4 MG CAPSULE PO SCH (09:15)
[2022-10-29 12:12] VITALS: BP 168/68
== END 2022-10-29 15:07 | disposition home or self-care (01) | DRG 682 ==
LOC: N.EDINP 13:21 → N.ED 13:21 → N.2E 10-26 06:43 → SUATTDRO 10-26 07:45 → N.2E 10-26 10:47
PROVIDERS: ADMIT Family Medicine; ATTEND Internal Medicine